=== PATIENT | female | born 1995 | race Hispanic/Latino ===

== ENCOUNTER 2024-01-30 09:43 | Day surgery (SDC) | payer OTHER ==
[2024-01-30] MEDS ORDERED: hydrALAZINE 20 MG/ML VIAL SLOW IVP PRN (10:51)
[2024-01-30 11:06] VITALS: BMI 37.5
[2024-01-30] MEDS ORDERED: Acetaminophen 500 MG TAB PO SCH (12:30)
== END 2024-01-30 13:07 | disposition home or self-care (01) ==
LOC: CSHLD/OP 09:43
PROVIDERS: ATTEND Family Medicine
DX: O47.1 False labor at or after 37 completed weeks of gestation (principal); Z3A.39 39 weeks gestation of pregnancy

== ENCOUNTER 2024-01-31 06:15 | Inpatient (IN) | payer MEDICAID, OTHER ==
[2024-01-31] MEDS: Lactated Ringer's 1,000 ML IV SCH (07:05)
[2024-01-31 07:45] VITALS: BMI 37.8
[2024-01-31] MEDS ORDERED: Promethazine HCl 25 MG/ML VIAL IM PRN ×2 (07:45→10:13)
[2024-01-31] MEDS ORDERED: Ondansetron PF 4 MG/2 ML Vial IVP PRN ×2 (07:45→10:13)
[2024-01-31] MEDS ORDERED: Lidocaine 1% (PF) 30 ML VIAL SC PRN (07:45)
[2024-01-31] MEDS ORDERED: Methylergonovine 0.2 MG/ML VIAL IM PRN (07:45)
[2024-01-31] MEDS ORDERED: Diphenoxylate HCl/Atropine Tablet PO PRN ×2 (07:45)
[2024-01-31] MEDS ORDERED: Carboprost 250 MCG/ML AMP IM PRN (07:45)
[2024-01-31] MEDS ORDERED: Misoprostol 200 MCG TAB RC PRN (07:45)
[2024-01-31] MEDS ORDERED: Oxytocin 30 units/NS 500 ML 500 ML IVPB SCH (07:45)
[2024-01-31] MEDS ORDERED: hydrALAZINE 20 MG/ML VIAL SLOW IVP PRN (07:45)
[2024-01-31] MEDS ORDERED: Acetaminophen 500 MG TAB PO PRN (07:45)
[2024-01-31 07:47] LABS: Hematocrit 36.6 % (34.9-44.5); Hemoglobin 12.7 g/dL (12.0-15.5); Mean Corpuscular HGB CONC 34.7 g/dL (32.0-36.0); Mean Corpuscular Hemoglobin 29.8 pg (27.0-33.0); Mean Corpuscular Volume 85.9 fL (81.6-98.3); Mean Platelet Volume 10.8 fL (7.4-10.4); Platelet Count 227 10x3/uL (150-450); RBC Distribution Width 14.4 % (11.5-14.5); Red Blood Cell (RBC) Count 4.26 10x6/uL (3.90-5.03)
[2024-01-31] MEDS ORDERED: Tranexamic Acid 1,000 MG/10 ML VIAL IVP PRN (07:59)
[2024-01-31] MEDS: Penicillin G Potassium 5 MILL.UNITS VIAL ONE (08:00)
[2024-01-31 08:14] LABS: HBsAg Index 0.26 S/CO (0-0.99); Hep B Surf Ag - L&D Non-Reactive S/CO (NonReactive)
[2024-01-31 08:16] LABS: Syphilis Antibody Nonreactive (Nonreactive); Syphilis Antibody Index 0.04 S/CO (<1.00 Non-Reactive)
[2024-01-31] MEDS: fentaNYL/Ropivacaine Epidural 100 ML ONE (09:15)
[2024-01-31] MEDS ORDERED: Lactated Ringer's 500 ML IV PRN (10:13)
[2024-01-31] MEDS ORDERED: diphenhydrAMINE 50 MG/ML VIAL IVP PRN (10:13)
[2024-01-31] MEDS ORDERED: ePHEDrine Sulfate 50 MG/10 ML VIAL SLOW IVP PRN (10:13)
[2024-01-31] MEDS ORDERED: Naloxone HCl 0.4 mg/ml Vial IVP PRN ×2 (10:13)
[2024-01-31] MEDS ORDERED: Moisturizing Cream (Eucerin) 113 GM JAR TOP PRN (10:13)
[2024-01-31] MEDS ORDERED: Communication Order-Pharmacy FS SCH (10:15)
[2024-01-31] MEDS ORDERED: fentaNYL 2 mcg/Ropivacaine 0.2% Epidural 100 ML CADD EPIDURAL SCH (10:15)
[2024-01-31] MEDS ORDERED: Penicillin G Potassium 5 MILL.UNITS in Sodium Chloride 0.9% 100 ML IVPB SCH (13:00)
[2024-01-31] MEDS: Penicillin G 2.5 MILL.units 2.5 MILL.UNITS in Premix 1 BAG IVPB SCH (15:00)
[2024-01-31] MEDS: Acetaminophen 325 MG TAB PO PRN (18:30)
[2024-02-01] MEDS ORDERED: Ondansetron PF 4 MG/2 ML Vial IVP PRN (00:21)
[2024-02-01] MEDS ORDERED: Oxytocin 30 units/NS 500 ML 500 ML IV SCH (00:21)
[2024-02-01] MEDS ORDERED: Preparation H Ointment 28 GM TUBE PR PRN (00:21)
[2024-02-01] MEDS ORDERED: Promethazine HCl 25 MG/ML VIAL IM PRN (00:21)
[2024-02-01] MEDS ORDERED: Bisacodyl 10 MG SUPP PR PRN (00:21)
[2024-02-01] MEDS ORDERED: hydrALAZINE 20 MG/ML VIAL SLOW IVP PRN (00:21)
[2024-02-01] MEDS ORDERED: Boostrix 0.5 ML (Tdap) VIAL (>/=7 yrs of age) IM ONE (00:21)
[2024-02-01] MEDS ORDERED: Lanolin Ointment 7 GM TUBE TOP PRN (00:21)
[2024-02-01] MEDS ORDERED: diphenhydrAMINE 25 MG CAP PO PRN (00:21)
[2024-02-01] MEDS: Polyethylene Glycol 3350 17 GM Packet PO SCH ×2 (01:14→09:17)
[2024-02-01] MEDS: Ibuprofen 800 MG TAB PO SCH (01:17)
[2024-02-01 04:26] LABS: Hematocrit 27.9 % (34.9-44.5); Hemoglobin 9.4 g/dL (12.0-15.5)
[2024-02-01] MEDS: Ferrous Sulfate 325 MG TAB PO SCH (09:16)
[2024-02-01] MEDS: Docusate 100 MG CAP PO SCH (09:16)
[2024-02-01] MEDS: Benzocaine-Menthol 82.5 ML CAN TOP PRN (09:16)
[2024-02-01] MEDS: Prenatal Vitamin 1 TAB PO SCH (09:16)
[2024-02-01] MEDS: Milk Of Magnesia 30 ML UDCUP PO PRN (16:30)
[2024-02-01 20:00] VITALS: BP 120/67; TEMP 97.8
== END 2024-02-02 18:25 | disposition home or self-care (01) | DRG 768 ==
LOC: CSHLD/OP 06:15 → CSHLD 06:46 → CSHPP 20:33
PROVIDERS: ADMIT Family Medicine; ATTEND Family Medicine
PROC: 10E0XZZ Delivery of Products of Conception, External Approach (ICD-10-PCS; principal; 2024-01-31)
PROC: 0DQR0ZZ Repair Anal Sphincter, Open Approach (ICD-10-PCS; 2024-01-31)
DX: O34.83 Maternal care for other abnormalities of pelvic organs, third trimester (principal); Z37.0 Single live birth; D62 Acute posthemorrhagic anemia; O70.22 Third degree perineal laceration during delivery, IIIb; N83.201 Unspecified ovarian cyst, right side; Z3A.39 39 weeks gestation of pregnancy; O76 Abnormality in fetal heart rate and rhythm complicating labor and delivery; O90.81 Anemia of the puerperium; O99.892 Other specified diseases and conditions complicating childbirth; R73.03 Prediabetes
CPT/HCPCS: 36415; 51702; 85014; 85018; 85027; 86780; 86850; 86900; 86901; 87340; 88307; 99285; J2540; J7120